=== PATIENT | female | born 2005 | race Two or more races ===

== ENCOUNTER 2025-07-28 07:38 | Emergency (ER) | payer MEDICAID, SELFPAY ==
[2025-07-28 07:38] VITALS: BMI 37.2
[2025-07-28 07:51] VITALS: BP 112/63; PULSE 84; RESP 16; TEMP 36.7; O2SAT 98
[2025-07-28 08:10] LABS: Collection Type, Urine Clean Catch
[2025-07-28 08:17] LABS: Bilirubin,Urine Negative (Negative); Blood,Urine Negative (Negative); Clarity,Urine Clear (Clear/Hazy); Color,Urine Colorless (Lt Yel-Yel); Culture Indicated,Urine Not Indicated; Glucose, Urine Negative (Negative); Ketones,Urine Negative (Negative); Leukocyte Esterase,Urine Negative (Negative); Nitrite,Urine Negative (Negative); PH,Urine 7.0 (5.0-7.0); Protein,Urine Negative (Neg - Trace); RBC,Urine 1 /hpf (0-3); Specific Gravity,Urine 1.016 (1.001-1.035); Squamous Epithelial Cell,Urine 4 /hpf (0-5); Urobilinogen,Urine Negative mg/dL (0.0-1.0); WBC,Urine < 1 /hpf (0-5)
--- NOTE | 2025-07-28 08:18 | PD.EDBACK ---
ED Back Injury Pain RME/HPI General Chief Complaint: Back Pain/Injury Stated Complaint: LOWER BACK PAIN Time Seen by Provider: 07/28/25 07:43 Arrival date/time: 07/28/25 07:38 Limitations: no limitations RME / HPI RME / HPI Narrative: 20yo female here for back pain x 1wk. taking Tylenol ibuprofen [id number] not helping. States was lifting a heavy case of water about a week ago. Now having low back pain that radiates to her right leg. No loss of bowel or bladder control. No history of back pain in the past. No history of IV drug use Related Data Previous Rx's ?Medication ?Instructions ?Recorded acetaminophen 500 mg capsule 500 mg PO Q4H PRN pain #30 caps 07/28/25 baclofen 10 mg tablet 10 mg PO BID #20 tabs 07/28/25 prednisone 20 mg tablet 40 mg PO QDAY #10 tabs 07/28/25 Allergies Allergy/AdvReac Type Severity Reaction Status Date / Time No Known Allergies Allergy Unknown Uncoded 12/24/08 15:31 Review of Systems Review of Systems Systems Reviewed: All systems reviewed, normal except as documented Musculoskeletal Musculoskeletal: Reports as per HPI ED Exam General Limitations: Present no limitations General appearance: Present alert and in no apparent distress Eye Eye exam: Present normal appearance, PERRL and EOMI Respiratory Respiratory exam: Present normal lung sounds bilaterally Cardiovascular Cardiovascular exam: Present regular rate, normal rhythm and normal heart sounds Extremities Exam Extremities exam: Present normal inspection and full ROM Back Exam Back exam: Present normal inspection, full ROM and tenderness (right sciatic knotch ttp ) Psychiatric Psychiatric exam: Present normal affect and normal mood Skin Skin exam: Present warm, dry, intact and normal color Course Quality Measures none Orders Category Date Time Status Urinalysis, C/S if Indicated Stat Lab 07/28/25 07:49 Completed Dexamethasone Inj [Decadron Inj] Med 07/28/25 08:18 Discontinued 10 mg PO X1 ONE HYDROcodone*/APAP 5/325 [Morrill 5/325] Med 07/28/25 08:18 Discontinued 1 tab PO X1 ONE Ketorolac Inj [Toradol Inj] Med 07/28/25 08:18 Discontinued 30 mg IM X1 ONE Vital Signs Vital signs: Vital Signs Temperature 98.0 F 07/28/25 07:51 Pulse Rate 84 07/28/25 07:51 Respiratory Rate 16 07/28/25 07:51 Blood Pressure 112/63 07/28/25 07:51 Pulse Oximetry (%) 98 07/28/25 07:51 Oxygen Delivery Method Room Air 07/28/25 07:51 Back Pain / Injury Patient data External records reviewed:: None Clinical information provided by:: patient Social determinants that could affect healthcare access:: other (specify) (No PCP appointment in the weekend) Patient has the following chronic illnesses:: None How is presenting disease/condition affected by chronic disease/condition?: no chronic disease Evaluation data The following diagnostics were reviewed and interpreted by me:: lab results (UA within normal limits) Lab and/or radiology exams considered but not ordered:: Imaging of lumbar spine considered however no significant trauma unlikely to change the course of treatment today Interpretation Summary: No imaging Medications / Prescriptions Medications or Prescriptions considered but not ordered:: Narcotics were considered however decided against it due to side effect potential. Medication administrations:: Medication Administration History Discontinued Medications Hydrocodone Bitart/Acetaminophen (Hydrocodone/Apap 5/325 Tablet) 1 tab PO X1 ONE Stop: 07/28/25 08:19 Last Admin: 07/28/25 08:36 Dose: 1 tab Documented By: BETH Dexamethasone Sodium Phosphate (Dexamethasone Sod Phos Inj 10 Mg/Ml Vial) 10 mg PO X1 ONE Stop: 07/28/25 08:19 Last Admin: 07/28/25 08:37 Dose: 10 mg Documented By: BETH Ketorolac Tromethamine (Ketorolac Inj 60 Mg/2 Ml Vial) 30 mg IM X1 ONE Stop: 07/28/25 08:19 Last Admin: 07/28/25 08:37 Dose: 30 mg Documented By: BETH See above Consultations Consultation(s) initiated? (list below): No Diagnosis Differential diagnosis back pain/injury: lumbar radiculopathy, sciatica, strain of lumbar region, renal colic and other Most likely diagnosis given after review of the tests above:: Lumbar strain with right-sided sciatica Admission Indicated Admission indicated?: not indicated Admission Request Was there a request for admission?: No Disposition Plan Disposition Plan: Discharge Discharge Attestation Discharge Attestation: The patient and all family members were given an opportunity to ask questions and understood the discharge instructions. Discharge instructions specifically effects, indications for sooner follow up or return to the emergency department, and the expected course of current diagnosis. Patient condition: Stable Discharge Plan Plan Patient Disposition: HOME (Self Care) Discharge Disposition comment: f/u with pcp in2-3day Prescriptions/Referrals Prescriptions/Med Rec: New baclofen 10 mg tablet 10 mg PO BID Qty: 20 0RF prednisone 20 mg tablet 40 mg PO QDAY Qty: 10 0RF Taper: Prednisone Taper 20 mg DAILY for 2 Days and 0 Hour 10 mg DAILY for 2 Days and 0 Hour 5 mg DAILY for 7 Days and 0 Hour acetaminophen 500 mg capsule 500 mg PO Q4H PRN (Reason: pain) Qty: 30 0RF Problem List Clinical Impression: Lumbar radiculopathy, Sciatica Patient/Caregiver Discharge Instructions Education Materials: ED Sciatica, ED RICE Print Language: Maldivian Stand Alone Forms: Lucina Award Info., Patient Portal Info Letter PA/SCHOOL PHOTOGRAPHS DETAILER Supervising Physician PA/SCHOOL PHOTOGRAPHS DETAILER Supervising Physician: Dr. gomez
[2025-07-28] MEDS: HYDROcodone/APAP 5/325 TABLET 1 TAB PO (08:36)
[2025-07-28] MEDS: KETOROLAC INJ 60 MG/2 ML VIAL 30 MG IM (08:37)
[2025-07-28] MEDS: DEXAMETHASONE SOD PHOS INJ 10 MG/ML VIAL PO (08:37)
== END 2025-07-28 09:34 | disposition home or self-care (01) ==
PROVIDERS: Emergency Provider Physician Assistant; PCP Obstetrics & Gynecology
DX: M54.16 Radiculopathy, lumbar region (principal)
CPT/HCPCS: 81001; 96372; 99283; J1100; J1885; A9270

== ENCOUNTER 2025-09-21 00:15 | Emergency (ER) | payer MEDICAID, SELFPAY ==
[2025-09-21 00:23] VITALS: BMI 36.5
[2025-09-21 00:24] VITALS: BP 118/81; PULSE 95; RESP 19; TEMP 36.4; O2SAT 100
--- NOTE | 2025-09-21 00:37 | PD.EDALLER ---
ED Allergic Reaction RME/HPI General Chief complaint: Allergic Reaction Stated complaint: ALLERGIC REACTION HIVES Time Seen by Provider: 09/21/25 00:36 Arrival date/time: 09/21/25 00:15 20F with no significant PMH presents to ED with several days of intermittent generalized itch rash. Benadryl improves symptoms, but rash keeps coming back. Patient denies new meds, foods, or hygiene products. Limitations: no limitations Related Data Previous Rx's ?Medication ?Instructions ?Recorded acetaminophen 500 mg capsule 500 mg PO Q4H PRN pain #30 caps 07/28/25 baclofen 10 mg tablet 10 mg PO BID #20 tabs 07/28/25 prednisone 20 mg tablet 40 mg PO QDAY #10 tabs 07/28/25 prednisone 50 mg tablet 50 mg PO QDAY 4 days #4 tabs 09/21/25 Allergies Allergy/AdvReac Type Severity Reaction Status Date / Time bee venom protein (honey bee) Allergy Verified 09/21/25 00:26 No Known Allergies Allergy Unknown Uncoded 09/21/25 00:26 Review of Systems Review of Systems Systems Reviewed: All systems reviewed, normal except as documented Integumentary/Breasts Skin/Breast: Reports as per HPI, Reports pruritus and Reports rash Past Medical History Social History SMOKING STATUS: Never smoker ED Exam General Limitations: Present no limitations General appearance: Present alert and in no apparent distress Head Head exam: Present atraumatic Neck Neck exam: Present normal inspection, full ROM and trachea midline Chest Chest inspection: Present normal inspection and symmetric chest wall rise Neurological Exam Neurological exam: Present alert and oriented X3 Psychiatric Psychiatric exam: Present normal affect and normal mood Skin Skin exam: Present warm, dry, intact, normal color and rash Course Quality Measures none Orders Category Date Time Status Dexamethasone Inj [Decadron Inj] Med 09/21/25 00:36 Discontinued 10 mg PO X1 ONE DiphenhydrAMINE INJ [Benadryl Inj] Med 09/21/25 01:19 Discontinued 50 mg IM X1 ONE Famotidine [Pepcid] Med 09/21/25 00:36 Discontinued 40 mg PO X1 ONE Vital Signs Vital signs: Vital Signs Temperature 97.5 F 09/21/25 00:24 Pulse Rate 95 09/21/25 00:24 Respiratory Rate 19 09/21/25 00:24 Blood Pressure 118/81 09/21/25 00:24 Pulse Oximetry (%) 100 09/21/25 00:24 Oxygen Delivery Method Room Air 09/21/25 00:24 O2 at 100% on RA and WNLs Allergic Reaction MDM Narrative MDM Narrative:: 20F with no significant PMH presents to ED with several days of intermittent generalized itch rash. Benadryl improves symptoms, but rash keeps coming back. Patient denies new meds, foods, or hygiene products. Physical exam reveals some urticarial rash, primarily on lower extremities. Normal WOB. Speech normal. Patient is afebrile, calm, and alert. Meds and counselor education professor given. Patient didn't want to wait for longer observation period. Patient data External records reviewed:: [facility] previous records Clinical information provided by:: patient Social determinants that could affect healthcare access:: none Patient has the following chronic illnesses:: none How is presenting disease/condition affected by chronic disease/condition?: no chronic disease Evaluation data The following diagnostics were reviewed and interpreted by me:: other (specify) (none) Lab and/or radiology exams considered but not ordered:: not ordered Interpretation Summary: n/a Medications / Prescriptions Medications or Prescriptions considered but not ordered:: ordered Medication administrations:: Medication Administration History Discontinued Medications Dexamethasone Sodium Phosphate (Dexamethasone Sod Phos Inj 10 Mg/Ml Vial) 10 mg PO X1 ONE Stop: 09/21/25 00:37 Last Admin: 09/21/25 00:54 Dose: 10 mg Documented By: CHRISTOPHER Comments: oral administration Diphenhydramine HCl (Diphenhydramine Inj 50 Mg/Ml Vial) 50 mg IM X1 ONE Stop: 09/21/25 01:20 Famotidine (Famotidine 20 Mg Tablet) 40 mg PO X1 ONE Stop: 09/21/25 00:37 Last Admin: 09/21/25 00:53 Dose: 40 mg Documented By: CHRISTOPHER above Consultations Consultation(s) initiated? (list below): No Diagnosis Differential Diagnosis allergic reaction: anaphylaxis, allergic reaction, angioedema, contact dermatitis, adverse reaction to drug, viral enanthem and urticaria Most likely diagnosis given after review of the tests above:: urticaria Admission Indicated Admission indicated?: not indicated Admission Request Was there a request for admission?: No Disposition Plan Disposition Plan: Discharge Discharge Attestation Discharge Attestation: The patient and all family members were given an opportunity to ask questions and understood the discharge instructions. Discharge instructions specifically effects, indications for sooner follow up or return to the emergency department, and the expected course of current diagnosis. Patient condition: Stable Discharge Plan Plan Patient Disposition: HOME (Self Care) Discharge Disposition comment: Stable Prescriptions/Referrals Prescriptions/Med Rec: New prednisone 50 mg tablet 50 mg PO QDAY 4 Days Qty: 4 0RF No Action baclofen 10 mg tablet 10 mg PO BID Qty: 20 0RF prednisone 20 mg tablet 40 mg PO QDAY Qty: 10 0RF Taper: Prednisone Taper 20 mg DAILY for 2 Days and 0 Hour 10 mg DAILY for 2 Days and 0 Hour 5 mg DAILY for 7 Days and 0 Hour acetaminophen 500 mg capsule 500 mg PO Q4H PRN (Reason: pain) Qty: 30 0RF Problem List Clinical Impression: Urticaria Patient/Caregiver Discharge Instructions Education Materials: ED Hives (Adult) Additional Instructions: Please follow-up with PCP within 24-48 hours and return immediately if symptoms worsen. Take OTC antihistamine as needed until symptoms resolve. Finish entire steroid course. Print Language: Belarusian Stand Alone Forms: Patient Portal Info Letter MICHEAL/PELON Supervising Physician MICHEAL/PELON Supervising Physician: Dr. Collier
[2025-09-21] MEDS: FAMOTIDINE 20 MG TABLET 40 MG PO (00:53)
[2025-09-21] MEDS: DEXAMETHASONE SOD PHOS INJ 10 MG/ML VIAL PO (00:54)
== END 2025-09-21 01:53 | disposition home or self-care (01) ==
LOC: SERX 01:43
PROVIDERS: Emergency Provider Emergency Medicine; PCP Physician Assistant
DX: L50.9 Urticaria, unspecified (principal)
CPT/HCPCS: 96372; 99281; J1100; J1200; A9270

== ENCOUNTER 2025-09-28 14:25 | Emergency (ER) | payer MEDICAID, SELFPAY ==
[2025-09-28 14:37] VITALS: BP 130/82; PULSE 107; RESP 17; TEMP 36.8; O2SAT 97; BMI 34.7
--- NOTE | 2025-09-28 14:41 | PD.EDSKIN ---
ED Skin Abcess FB-RME/HPI General Chief complaint: Skin/Abscess/Foreign Body Stated complaint: Hives X 2 weeks Time Seen by Provider: 09/28/25 14:27 Arrival date/time: 09/28/25 14:25 20-year-old female presents to the emergency department for complaints of rash patient reports symptom onset 2 weeks ago patient reports he been on multiple courses of medication reports symptoms are intermittent Limitations: no limitations Related Data Previous Rx's ?Medication ?Instructions ?Recorded acetaminophen 500 mg capsule 500 mg PO Q4H PRN pain #30 caps 07/28/25 baclofen 10 mg tablet 10 mg PO BID #20 tabs 07/28/25 prednisone 20 mg tablet 40 mg PO QDAY #10 tabs 07/28/25 cetirizine 10 mg capsule (Zyrtec) 10 mg PO QDAY PRN allergy symptoms 09/28/25 #30 caps prednisone 20 mg tablet 20 mg PO BID 3 days #6 tabs 09/28/25 Allergies Allergy/AdvReac Type Severity Reaction Status Date / Time bee venom protein (honey bee) Allergy Verified 09/28/25 14:30 Review of Systems Review of Systems Systems Reviewed: All systems reviewed, normal except as documented Constitutional Constitutional: Reports system reviewed and no additional complaints, except as documented, Denies fever(s) and Denies headache(s) Eyes Eyes: Reports system reviewed and no additional complaints, except as documented and Denies blurry vision ENT Ears, Nose, Mouth, and Throat: Reports system reviewed and no additional complaints, except as documented, Denies headache(s), Denies nasal congestion and Denies nasal discharge Cardiovascular Cardiovascular: Reports system reviewed and no additional complaints, except as documented, Denies chest pain and Denies dyspnea Respiratory Respiratory: Reports system reviewed and no additional complaints, except as documented, Denies chest congestion, Denies cough and Denies dyspnea Gastrointestinal Gastrointestinal: Reports system reviewed and no additional complaints, except as documented and Denies abdominal pain Integumentary/Breasts Skin/Breast: Reports system reviewed and no additional complaints, except as documented, Reports pruritus and Reports rash Neurologic Neurologic: Reports system reviewed and no additional complaints, except as documented, Reports as per HPI and Denies headache(s) Past Medical History Past Medical History NEUROLOGIC: Negative Neurological Disorders CARDIAC: Negative Cardiac Disorders ED Exam General Limitations: Present no limitations General appearance: Present alert and in no apparent distress Head Head exam: Present atraumatic, normocephalic and normal inspection Eye Eye exam: Present normal appearance, PERRL and EOMI; Absent conjunctival injection ENT ENT exam: Present normal exam, normal oropharynx and mucous membranes moist Neck Neck exam: Present normal inspection, full ROM and trachea midline Chest Chest inspection: Present normal inspection and symmetric chest wall rise Respiratory Respiratory exam: Present normal lung sounds bilaterally Cardiovascular Cardiovascular exam: Present regular rate, normal rhythm and normal heart sounds Abdominal Exam Abdominal exam: Present soft and normal bowel sounds Extremities Exam Extremities exam: Present normal inspection and full ROM Back Exam Back exam: Present normal inspection and full ROM Neurological Exam Neurological exam: Present alert, oriented X3 and CN II-XII intact Psychiatric Psychiatric exam: Present normal affect and normal mood Skin Skin exam: Present warm, dry and rash Course Quality Measures none Orders Category Date Time Status Dexamethasone Inj [Decadron Inj] Med 09/28/25 14:42 Discontinued 10 mg PO X1 ONE Vital Signs Vital signs: Vital Signs Temperature 98.2 F 09/28/25 14:37 Pulse Rate 107 H 09/28/25 14:37 Respiratory Rate 17 09/28/25 14:37 Blood Pressure 130/82 09/28/25 14:37 Pulse Oximetry (%) 97 09/28/25 14:37 Oxygen Delivery Method Room Air 09/28/25 14:37 O2 saturation 97% on room air within normal limits Skin / Abscess / Foreign Body MDM Narrative MDM Narrative:: 20-year-old female presents to the emergency department for complaints of rash patient reports symptom onset 2 weeks ago patient reports he been on multiple courses of medication reports symptoms are intermittent On exam patient alert. Patient does not appear ill or toxic no acute distress patient is no evidence of anaphylaxis patient has no rash On exam currently patient has no rash patient given a dose of dexamethasone discharged home with steroids and Zyrtec Explained to the patient she must follow-up with PCP in order get a referral to dermatology for worsening symptoms return immediately Patient data External records reviewed:: [facility] previous records Clinical information provided by:: patient Social determinants that could affect healthcare access:: none Patient has the following chronic illnesses:: None How is presenting disease/condition affected by chronic disease/condition?: no chronic disease Evaluation data The following diagnostics were reviewed and interpreted by me:: other (specify) Lab and/or radiology exams considered but not ordered:: Considered not ordered Interpretation Summary: N/A Medications / Prescriptions Medications or Prescriptions considered but not ordered:: Given Medication administrations:: Medication Administration History Discontinued Medications Dexamethasone Sodium Phosphate (Dexamethasone Sod Phos Inj 10 Mg/Ml Vial) 10 mg PO X1 ONE Stop: 09/28/25 14:43 Last Admin: 09/28/25 14:51 Dose: 10 mg Documented By: MF Given Consultations Consultation(s) initiated? (list below): No Diagnosis Skin/Abscess Differential Diagnosis: urticaria and contact dermatitis Most likely diagnosis given after review of the tests above:: Urticaria Admission Indicated Admission indicated?: not indicated Admission Request Was there a request for admission?: No Disposition Plan Disposition Plan: Discharge Discharge Attestation Discharge Attestation: The patient and all family members were given an opportunity to ask questions and understood the discharge instructions. Discharge instructions specifically effects, indications for sooner follow up or return to the emergency department, and the expected course of current diagnosis. Patient condition: Stable Discharge Plan Plan Patient Disposition: HOME (Self Care) Discharge Disposition comment: Stable Prescriptions/Referrals Prescriptions/Med Rec: New prednisone 20 mg tablet 20 mg PO BID 3 Days Qty: 6 0RF Zyrtec 10 mg capsule 10 mg PO QDAY PRN (Reason: allergy symptoms) Qty: 30 0RF No Action baclofen 10 mg tablet 10 mg PO BID Qty: 20 0RF prednisone 20 mg tablet 40 mg PO QDAY Qty: 10 0RF Taper: Prednisone Taper 20 mg DAILY for 2 Days and 0 Hour 10 mg DAILY for 2 Days and 0 Hour 5 mg DAILY for 7 Days and 0 Hour acetaminophen 500 mg capsule 500 mg PO Q4H PRN (Reason: pain) Qty: 30 0RF Problem List Clinical Impression: Urticaria Patient/Caregiver Discharge Instructions Education Materials: ED Hives (Adult) Additional Instructions: Please follow up with your primary care doctor in the next 24-48hrs for any worsening symptoms return here immediately Print Language: Scottish Stand Alone Forms: Lucina Award Info., Patient Portal Info Letter PA/WATCH CRYSTAL EDGE GRINDER Supervising Physician PA/WATCH CRYSTAL EDGE GRINDER Supervising Physician: Dr. Latif
[2025-09-28] MEDS: DEXAMETHASONE SOD PHOS INJ 10 MG/ML VIAL PO (14:51)
== END 2025-09-28 15:15 | disposition home or self-care (01) ==
LOC: SERX 15:00
PROVIDERS: Emergency Provider Emergency Medicine; PCP Physician Assistant
DX: L50.9 Urticaria, unspecified (principal)
CPT/HCPCS: 99282; J1100